=== PATIENT | female | born 1960 | race Caucasian/White ===

== ENCOUNTER → 2019-04-11 | Outpatient (CLI) | payer BC ==
[~2019-04-11] MED LIST: ASPI-482 PO; CRESTOR40 MG PO; DEXT10CA10 PO; ESCITALOPRAM OX10 MG PO; ESTR0.5T PO; HYDR-2765 PO; LEVO125T5 PO; LISI-338 PO; METH-38 PO
--- NOTE | 2019-04-11 14:38 | KCIC ---
ABDOMEN LTD INDICATION: Elevated LFT COMPARISON: None. TECHNIQUE: Limited transverse and longitudinal grayscale images of the right upper quadrant with color and pulsed doppler utilized as appropriate. FINDINGS: The liver demonstrates increased echogenicity without focal lesions. The liver measures 18.2 cm. The portal vein is patent with normal antegrade flow. The gallbladder is normal in appearance without stones. No wall thickening or pericholecystic fluid. Negative sonographic Conklin's sign. No intrahepatic or extrahepatic biliary dilatation. The common bile duct measures 0.5 cm. The visualized portions of the pancreas demonstrate normal echogenicity without focal lesions. The right kidney has normal echogenicity and measures 11.3 cm. No hydronephrosis, shadowing stones or suspicious masses seen. No ascites or fluid collections. The aorta and IVC are normal diameter where visualized. IMPRESSION: Hepatomegaly and mild hepatic steatosis. Electronically signed by: John Zepeda MD (04/11/2019 2:35 PM) [facility]
== END | disposition home or self-care (01) ==
LOC: KCIC US 07:49
PROVIDERS: ATTEND Family Medicine
DX: K76.0 Fatty (change of) liver, not elsewhere classified (principal); R16.0 Hepatomegaly, not elsewhere classified
CPT/HCPCS: 76705